=== PATIENT | male | born 1940 | race Caucasian/White ===

== ENCOUNTER → 2017-05-14 | Outpatient (CLI) | payer MEDICARE ==
[2017-05-14 14:40] LABS: HCT 47.9 % (39.0-53.0); HGB 15.4 gm/dL (13.0-17.5); MCH 31.7 pg (25.0-35.0); MCHC 32.2 g/dL (31.0-37.0); MCV 98.4 fL (80.0-100.0); Mean Platelet Volume 7.2; Platelet Count 274 k/uL (150-450); RBC 4.87 m/uL (4.30-5.90); RDW 14.4 % (11.5-15.5); WBC 6.2 k/uL (3.8-10.6)
[2017-05-14 14:46] LABS: Prothrombin Time 10.1 sec (9.0-12.0)
[2017-05-14 14:48] LABS: Anion Gap 10 mmol/L; Blood Urea Nitrogen 26 mg/dL (9-20); Calcium 9.1 mg/dL (8.4-10.2); Carbon Dioxide 28 mmol/L (22-30); Chloride 104 mmol/L (98-107); Glucose 90 mg/dL (74-99); Potassium 4.4 mmol/L (3.5-5.1); Sodium 142 mmol/L (137-145)
== END | disposition home or self-care (01) ==
LOC: LABWHC1 14:02
PROVIDERS: ATTEND Internal Medicine
DX: Z01.812 Encounter for preprocedural laboratory examination (principal); I25.10 Atherosclerotic heart disease of native coronary artery without angina pectoris
CPT/HCPCS: 36415; 80048; 85027; 85610

== ENCOUNTER 2017-06-23 09:11 | Day surgery (SDC) | payer MEDICARE ==
[2017-06-19 08:43] VITALS: BMI 23.7
[~2017-06-23 09:11] MED LIST: LACTATED RINGERS 1,000 ML IV SCH
[2017-06-23 10:07] VITALS: TEMP 97.9
[2017-06-23] MEDS ORDERED: PROPOFOL 10 MG/ML 20 ML VIAL IV ONE (10:31)
[2017-06-23 11:12] VITALS: BP 90/62; PULSE 73; RESP 16
--- NOTE | 2017-06-23 11:15 | P.PCN ---
Date of Procedure: 06/23/17 Procedure(s) Performed: Procedure: Colonoscopy and polypectomy. Preoperative diagnosis: Screening for neoplasia, patient has history of polyps and family history of colon cancer. Postoperative diagnosis: 1. Multiple small polyps snared but no large polyps or cancer. 2. Sigmoid diverticulosis with no evidence of acute diverticulitis or strictures. Preparation: HalfLytely prep. Sedation: Was provided by anesthesia. Brief clinical history: The patient is a 76-year-old male who is scheduled for this evaluation for screening for neoplasia because of history of polyps and family history of colon cancer in his mother. His last exam was in April 2014. He has no abdominal complaints, bleeding or anemia. Procedure: With the patient on his left lateral decubitus position and after informed consent and adequate sedation, the perianal area was inspected and it did not show any fissures or fistulas. There were no masses felt on digital rectal examination. The Olympus CFQ 160L video colonoscope was then inserted in the rectum in the usual fashion and advanced to the cecum. There were a few diverticular orifices noted scattered in the sigmoid with no evidence of acute diverticulitis or strictures. The mucosa appeared healthy. 3 small polyps were seen, one in the cecum one in the proximal right colon and one around the hepatic flexure which were snared and retrieved by suction but there were no large polyps or cancer. I retroflexed the endoscope in the rectum before the endoscope was withdrawn. The patient tolerated the procedure well. Plan: The patient was reassured. Discussed dietary measures. I recommended repeat exam in 3-5 years. He will follow up with you as planned.
== END 2017-06-23 11:55 | disposition home or self-care (01) ==
LOC: ORWHC2ENDO 09:11
DX: Z12.11 Encounter for screening for malignant neoplasm of colon (principal); D12.0 Benign neoplasm of cecum; D12.3 Benign neoplasm of transverse colon; D12.2 Benign neoplasm of ascending colon; K57.30 Diverticulosis of large intestine without perforation or abscess without bleeding; Z86.010 Personal history of colon polyps; Z80.0 Family history of malignant neoplasm of digestive organs; I71.2 Thoracic aortic aneurysm, without rupture; H40.9 Unspecified glaucoma; Z85.46 Personal history of malignant neoplasm of prostate; Z88.1 Allergy status to other antibiotic agents; Z88.0 Allergy status to penicillin; Z88.8 Allergy status to other drugs, medicaments and biological substances
CPT/HCPCS: 88305; 45385; J2704

== ENCOUNTER → 2017-06-24 | Outpatient (CLI) | payer MEDICARE ==
--- NOTE | 2017-06-25 10:09 | CT ---
EXAMINATION TYPE: CT angio head DATE OF EXAM: 06/24/2017 COMPARISON: NONE HISTORY: Thoracic aortic aneurysm. CT DLP: 1296 mGycm Automated exposure control for dose reduction was used. TECHNIQUE: CT sections are obtained through the brain at 3 mm thick sections. Study is performed post contrast. Three-D reconstructed images performed separately on the alternate computer by the technol ogist are filmed and presented. FINDINGS: [place]: The distal internal carotid arteries bifurcate normally into A1 and M1 segments. Th e anterior communicating artery appears patent. A2 segments are normal. Middle cerebral artery branch es are unremarkable. Right posterior communicating artery is patent. Left posterior communicating art nisa not well visualized. Posterior cerebral vasculature is normal. Basilar tip is unremarkable. Verte brobasilar system appears normal. Vertebral arteries are codominant. IMPRESSION: NORMAL [place] CTA
== END | disposition home or self-care (01) ==
LOC: RADCTMAIN 17:03
PROVIDERS: ATTEND Surgery
DX: I71.2 Thoracic aortic aneurysm, without rupture (principal)
CPT/HCPCS: 70496; Q9967

== ENCOUNTER → 2019-02-24 | Outpatient (CLI) | payer MEDICARE ==
--- NOTE | 2019-02-24 15:10 | CONS ---
CONSULTATION DATE OF SERVICE: 02/24/2019 A 78-year-old gentleman who has been evaluated in the [facility] for possible obstructive sleep apnea-hypopnea syndrome. HISTORY OF PRESENT ILLNESS/SLEEP-WAKE EVALUATION: Patient usual sleep schedule from 11 to 11:30 p.m. until 7:30 a.m. No problems with falling asleep, although he has TV set in bedroom, usually sleeps on the side position. According to his , he snores. He wakes up from sleep up to 4 times and up to 3 episodes of nocturia. During the day, he occasionally may take naps, feel refreshed after naps. No vivid dreams during naps. No history of hypnagogic hallucinations, sleep paralysis or cataplexy. [place] Sleepiness Scale is 5. PAST MEDICAL HISTORY: Positive for aortic aneurysm. PAST SURGICAL HISTORY: Status post surgery for aortic aneurysm in 2018. MEDICATIONS: Aspirin. FAMILY HISTORY: Aortic aneurysm in several members of his family and treated surgically, headaches, cancer, ulcers, restless legs. REVIEW OF SYSTEMS: Multiple awakenings from sleep. Sometimes tiredness and sleepiness during the day, snoring. SOCIAL HISTORY: Negative for smoking. Alcohol consumption daily and 1-1/2 drinks of martini. PHYSICAL EXAM: gentleman without distress, BP 114/64, HR 78, RR 16, height 5 foot 7-1/2 inches, weight 179 pounds. Body mass index 27.6, temperature 98.0, oxygen saturation at room air 95%. OROPHARYNX: Extremely low position of soft palate. Mallampati 4. NECK: 14-3/4 inches in circumference. CHEST: Scar in the middle of the chest after surgery noted. LUNGS: Clear to percussion and to auscultation. Good air exchange. No wheezing or rhonchi. HEART: S1, S2 regular. No murmurs, gallops, or rubs. ABDOMEN: Soft and nontender. Bowel sounds are present. No organomegaly appreciated. EXTREMITIES: No clubbing or cyanosis. NECK PINNER: Awake, alert, and oriented X3. Cranial nerves 2 to 7 intact. There is no fasciculation or atrophy. noted. No focal deficits observed. IMPRESSION: 1. Snoring, multiple awakenings from sleep up to 4 times with 3 episodes of nocturia, extremely low position of soft palate, Mallampati 4, episodes of sleepiness during the day with naps. Obstructive sleep apnea-hypopnea syndrome. 2. History of aortic aneurysm in ascending part and root of aorta. 3. Status post surgical treatment of aortic aneurysm. PLAN: 1. Polysomnography for evaluation of patient's breathing during sleep. 2. CPAP/BiPAP titration if sleep study confirms obstructive sleep apnea-hypopnea syndrome. 3. Preferable position during sleep on the side. 4. No driving if patient feels any sleepiness. 5. I will see patient for follow up visit to explain results of testing and following plan. 6. Patient was recommended to decrease and possibly stop using alcohol in the evening because it may increase snoring and could be the reason for developing of sleep apnea for some patients. Thank you very much for referring this patient for consultation. Sincerely, Emanuel Weems MD, PhD, FAASM Diplomat of [place] [employer] [place] [employer] Home Health Nurse Licensed Practical of [facility] [place] MMODL / IJN: [id number] /
== END | disposition home or self-care (01) ==
LOC: SLEEP 13:11
PROVIDERS: ATTEND Internal Medicine
DX: G47.33 Obstructive sleep apnea (adult) (pediatric) (principal); Z98.890 Other specified postprocedural states; Z79.82 Long term (current) use of aspirin; Z86.79 Personal history of other diseases of the circulatory system
CPT/HCPCS: 99211

== ENCOUNTER → 2019-05-13 | Outpatient (CLI) | payer MEDICARE ==
--- NOTE | 2019-05-13 20:23 | MR ---
EXAMINATION TYPE: MR brain wo con DATE OF EXAM: 05/13/2019 COMPARISON: NONE HISTORY: Lt eye vision loss, family hx of aortic aneurysm TECHNIQUE: T1-weighted sagittal, T2, FLAIR, and diffusion axial, and T2 coronal coronal views of the brain are submitted. FINDINGS: There is no evidence of acute ischemia. Changes of chronic sinusitis noted. Mild generalized degenera tive change. There is faint periventricular areas of abnormal signal are scattered focal areas of abn ormal signal external. Most typical remote microvascular ischemic change. There is no mass effect. Craniocervical junction maintained. Sella turcica has a normal appearance. No cerebellopontine angle mass. IMPRESSION: 1. No acute intracranial process. Degenerative change and minimal nonspecific white matter changes mo st typical of remote microvascular ischemia.
--- NOTE | 2019-05-13 20:24 | MR ---
EXAMINATION TYPE: MR angio head wo con DATE OF EXAM: 05/13/2019 COMPARISON: CTA 06/24/2017 HISTORY: CEREBRAL ANEURYSM RISK FAMILY HX TECHNIQUE: Utilizing 3-D [id number] intracranial MRA of the [place] was performed. FINDINGS: The vertebrobasilar and carotid systems are patent. There is 2 mm prominence of the anterior communi cating artery. Posterior communicating artery has a normal appearance right vertebral artery is domin ant. Anterior cerebral, posterior cerebral and middle cerebral arteries are patent. Mild ectasia of t he ophthalmic artery on the left. IMPRESSION: 1. 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 2. Mild asymmetric ectasia of the left ophthalmic artery with no discrete aneurysm.
== END | disposition home or self-care (01) ==
LOC: RADMRIMAIN 19:07
PROVIDERS: ATTEND Internal Medicine
DX: I77.89 Other specified disorders of arteries and arterioles (principal); G31.9 Degenerative disease of nervous system, unspecified; I67.82 Cerebral ischemia; R90.89 Other abnormal findings on diagnostic imaging of central nervous system; Z88.0 Allergy status to penicillin; Z88.1 Allergy status to other antibiotic agents; Z88.6 Allergy status to analgesic agent; Z88.8 Allergy status to other drugs, medicaments and biological substances; Z91.041 Radiographic dye allergy status
CPT/HCPCS: 70544; 70551

== ENCOUNTER → 2019-06-29 | Outpatient (CLI) | payer MEDICARE ==
--- NOTE | 2019-06-29 13:54 | US ---
EXAMINATION TYPE: US kidneys/renal and bladder DATE OF EXAM: 06/29/2019 COMPARISON: NONE CLINICAL HISTORY: R310 HEMATURIA. Pt states gross hematuria x 1 week EXAM MEASUREMENTS: Right Kidney: 11.0 x 5.4 x 5.4 cm Left Kidney: 10.8 x 6.2 x 4.8 cm Right Kidney: Cyst lower pole= 1.6 x 1.2 x 1.4 cm/ Mild hydro with dilated ureter Left Kidney: No evidence of hydro, possible calculi scattered throughout, largest 6mm in size Bladder: dilated right ureter visualized, otherwise appeared wnl Bilateral Jets seen: No Mild right-sided hydronephrosis are noted. No left-sided hydronephrosis. Calculi seen in the left kid victorino measuring up to 6 mm. Simple appearing cyst lower pole right kidney. No solid masses are identifi ed. The urinary bladder is anechoic. IMPRESSION: 1. Mild right-sided hydronephrosis. 2. Nonobstructing left-sided nephrolithiasis.
== END | disposition home or self-care (01) ==
LOC: RADUSWWP 12:36
PROVIDERS: ATTEND Urology
DX: N13.2 Hydronephrosis with renal and ureteral calculous obstruction (principal); Z88.1 Allergy status to other antibiotic agents; Z88.8 Allergy status to other drugs, medicaments and biological substances
CPT/HCPCS: 76770

== ENCOUNTER 2019-12-19 19:11 | Emergency (ER) | payer MEDICARE ==
[2019-12-19 19:17] VITALS: TEMP 98.3
[2019-12-19] MEDS ORDERED: HYDROmorphone 0.5 MG/0.5 ML SYRINGE IVP STA ×2 (19:34→21:37)
[2019-12-19] MEDS ORDERED: SODIUM CHLORIDE 0.9% 1,000 ML IV STA (19:34)
[2019-12-19] MEDS ORDERED: ONDANSETRON 4 MG/2 ML VIAL IVP STA (19:34)
[2019-12-19 19:55] VITALS: RESP 16
--- NOTE | 2019-12-19 19:55 | ED ---
Abdominal Pain HPI - General Chief Complaint: Abdominal Pain Stated Complaint: abd pain Time Seen by Provider: 12/19/19 19:22 Source: patient Mode of arrival: ambulatory Limitations: no limitations - History of Present Illness Initial Comments: 79-year-old male patient presents to the emergency department today for evaluation of right flank pain. States the pain has been present since around 3:00 this afternoon. States the pain is sharp and stabbing to the right flank region. Patient states he has been nauseous and did have episode of vomiting. Patient states that he has issues with urination due to recent diagnosis of bladder cancer for which he is scheduled to undergo surgery on Thursday. He denies any fever or chills. Denies any constipation or diarrhea. Denies history of abdominal surgery. Patient denies any recent rash, cough, shortness of breath, chest pain, numbness, tingling, dizziness, weakness, headache, visual changes, or any other complaints. - Related Data Previous Rx's Medication Instructions Recorded Sulfamethoxazole/Trimethoprim 1 each PO BID #20 tablet 12/19/19 [Bactrim DS 800-160 mg] Allergies Allergy/AdvReac Type Severity Reaction Status Date / Time Beta-Blockers Allergy Severe Rash/Hives Verified 12/19/19 20:56 (Beta-Adrenergic Bloc clindamycin Allergy Severe Rash/Hives Verified 12/19/19 20:56 moxifloxacin [From Avelox] Allergy Severe Rash/Hives Verified 12/19/19 20:56 Penicillins Allergy Severe Throat Verified 12/19/19 20:56 closes Review of Systems ROS Statement: Those systems with pertinent positive or pertinent negative responses have been documented in the HPI. ROS Other: All systems not noted in ROS Statement are negative. Past Medical History Past Medical History: Cancer, Eye Disorder Additional Past Medical History / Comment(s): PROSTATE CA , GLAUCOMA History of Any Multi-Drug Resistant Organisms: None Reported Past Surgical History: Hernia Repair, Prostate Surgery Additional Past Surgical History / Comment(s): ROCCO CATARACTS. COLONOSCOPY Past Anesthesia/Blood Transfusion Reactions: No Reported Reaction Past Psychological History: No Psychological Hx Reported Past Alcohol Use History: Daily Past Drug Use History: None Reported - Past Family History Mother Family Medical History: Cancer Father Family Medical History: Cancer General Exam Limitations: no limitations General appearance: alert, in no apparent distress, other (This is a well- developed, well-nourished elderly male patient in no acute distress. Vital sig ns upon presentation are temperature 98.3F, pulse 69, respirations 18, blood pressure 146/86, pulse ox 99% on room air.) Eye exam: Present: normal appearance, PERRL, EOMI. Absent: scleral icterus, conjunctival injection, periorbital swelling ENT exam: Present: normal exam, normal oropharynx, mucous membranes moist Respiratory exam: Present: normal lung sounds bilaterally. Absent: respiratory distress, wheezes, rales, rhonchi, stridor Cardiovascular Exam: Present: regular rate, normal rhythm, normal heart sounds. Absent: systolic murmur, diastolic murmur, rubs, gallop, clicks GI/Abdominal exam: Present: soft, normal bowel sounds. Absent: distended, tenderness, guarding, rebound, rigid Back exam: Present: normal inspection, CVA tenderness (R). Absent: CVA tenderness (L) Neurological exam: Present: alert, oriented X3, CN II-XII intact Psychiatric exam: Present: normal affect, normal mood Skin exam: Present: warm, dry, intact, normal color. Absent: rash Course Vital Signs 12/19/19 12/19/19 12/19/19 19:15 19:54 21:47 Temperature 98.3 F Pulse Rate 69 77 67 Respiratory 18 16 16 Rate Blood Pressure 146/86 134/81 128/78 O2 Sat by Pulse 99 96 97 Oximetry Medical Decision Making - Medical Decision Making 79-year-old male patient presents to the emergency department today for evaluation of right flank pain. Physical examination did reveal right CVA tenderness, no abdominal tenderness. Labs reviewed and did reveal elevated BUN at 26. Urinalysis did show greater than 182 red blood cells, greater than 182 white blood cells, large leukocyte esterase. CT abdomen and pelvis was obtained and showed no evidence for kidney stone however did reveal right-sided hydronephrosis and hydroureter consistent with obstruction. We did discuss the case with the patient's urologist Dr. Pedro who recommends starting antibiotics and having him follow-up in the office this week. Patient will be given a dose of pain medication for home. He is instructed to complete and rapid prescription and full. Dr. Shaw was in and evaluated the patient and relayed instructions. Return parameters were discussed in detail. He verbalizes understanding and agrees with this plan - Lab Data Result diagrams: 12/19/19 19:46 12/19/19 19:46 Lab Results 12/19/19 12/19/19 12/19/19 Range/Units 19:46 19:46 19:46 WBC 11.6 H (3.8-10.6) k/uL RBC 4.84 (4.30-5.90) m/uL Hgb 15.0 (13.0-17.5) gm/dL Hct 46.9 (39.0-53.0) % MCV 96.9 (80.0-100.0) fL MCH 31.0 (25.0-35.0) pg MCHC 32.0 (31.0-37.0) g/dL RDW 13.1 (11.5-15.5) % Plt Count 272 (150-450) k/uL Neutrophils % 82 % Lymphocytes % 9 % Monocytes % 6 % Eosinophils % 2 % Basophils % 1 % Neutrophils # 9.5 H (1.3-7.7) k/uL Lymphocytes # 1.0 (1.0-4.8) k/uL Monocytes # 0.7 (0-1.0) k/uL Eosinophils # 0.2 (0-0.7) k/uL Basophils # 0.1 (0-0.2) k/uL Sodium 137 (137-145) mmol/L Potassium 4.1 (3.5-5.1) mmol/L Chloride 103 (98-107) mmol/L Carbon Dioxide 26 (22-30) mmol/L Anion Gap 8 mmol/L BUN 26 H (9-20) mg/dL Creatinine 1.16 (0.66-1.25) mg/dL Est GFR (CKD-EPI)AfAm 70 (>60 ml/min/1.73 sqM) Est GFR (CKD-EPI)NonAf 60 (>60 ml/min/1.73 sqM) Glucose 104 H (74-99) mg/dL Calcium 9.2 (8.4-10.2) mg/dL Total Bilirubin 0.6 (0.2-1.3) mg/dL AST 23 (17-59) U/L ALT 13 (4-49) U/L Alkaline Phosphatase 59 (38-126) U/L Total Protein 7.1 (6.3-8.2) g/dL Albumin 4.3 (3.5-5.0) g/dL Amylase 47 (30-110) U/L Lipase 71 (23-300) U/L Urine Color [place] Urine Appearance Cloudy (Clear) Urine pH 6.0 (5.0-8.0) Ur Specific [place] 1.020 (1.001-1.035) Urine Protein 4+ H (Negative) Urine Glucose (UA) Negative (Negative) Urine Ketones 1+ (Negative) Urine Blood Large (Negative) Urine Nitrite Negative (Negative) Urine Bilirubin Negative (Negative) Urine Urobilinogen 0.2 (<2.0) mg/dL Ur Leukocyte Esterase Large (Negative) Urine RBC >182 H (0-5) /hpf Urine WBC >182 H (0-5) /hpf Urine WBC Clumps Few H (None) /hpf Urine Bacteria Many H (None) /hpf Hyaline Casts 13 H (0-2) /lpf Urine Mucus Few H (None) /hpf - Radiology Data Radiology results: report reviewed, image reviewed CT abdomen and pelvis without contrast was obtained. Report was reviewed in its entirety. Impression by Dr. Hunter shows right-sided hydronephrosis and hydroureter similar to the ultrasound exam of 06/29/2019. The ultrasound exam was reviewed and no obstructing mass is demonstrated. The hydronephrosis and hydroureter could relate to reflux disease. Obstruction of the right distal ureter due to tumor is not excluded. Disposition Clinical Impression: Hydronephrosis, right, Urinary tract infection Disposition: HOME SELF-CARE Condition: Good Instructions (If sedation given, give patient instructions): Urinary Tract Infection in Men (ED), Flank Pain (ED), Hydronephrosis (ED) Additional Instructions: Take medications as directed. Follow-up with Dr. Pedro for recheck as soon as possible. Return to the emergency department immediately for any new, worsening, or concerning symptoms. Prescriptions: Sulfamethoxazole/Trimethoprim [Bactrim DS 800-160 mg] 1 each PO BID #20 tablet Is patient prescribed a controlled substance at d/c from ED?: No Referrals: Gilberto Cristobal MD [Primary Care Provider] - 1-2 days Time of Disposition: 21:39
[2019-12-19 19:59] LABS: Basophils # (A) 0.1 k/uL (0-0.2); Basophils % (A) 1 %; Eosinophils # (A) 0.2 k/uL (0-0.7); Eosinophils % (A) 2 %; HCT 46.9 % (39.0-53.0); Lymphocytes % (A) 9 %; MCV 96.9 fL (80.0-100.0); Mean Platelet Volume 7.1; Monocytes # (A) 0.7 k/uL (0-1.0); Monocytes % (A) 6 %; Neutrophils # (A) 9.5 k/uL (1.3-7.7); Neutrophils % (A) 82 %; Platelet Count 272 k/uL (150-450); RBC 4.84 m/uL (4.30-5.90); RDW 13.1 % (11.5-15.5); WBC 11.6 k/uL (3.8-10.6)
[2019-12-19 20:08] LABS: Albumin 4.3 g/dL (3.5-5.0); Calcium 9.2 mg/dL (8.4-10.2); Potassium 4.1 mmol/L (3.5-5.1); Total Bilirubin 0.6 mg/dL (0.2-1.3); Total Protein 7.1 g/dL (6.3-8.2)
[2019-12-19 20:12] LABS: Appearance,Urine Cloudy (Clear); Color,Urine Amber
[2019-12-19 20:13] LABS: Glucose,Urine (UA) Negative (Negative); Ketones,Urine 1+ (Negative); Protein,Urine 4+ (Negative)
[2019-12-19 20:14] LABS: Bilirubin,Urine Negative (Negative); Blood,Urine Large (Negative); Leukocyte Esterase,Urine Large (Negative); Nitrite,Urine Negative (Negative); Urobilinogen,Urine 0.2 mg/dL (<2.0)
[2019-12-19 20:15] LABS: Bacteria,Urine Many /hpf; RBC,Urine >182 /hpf (0-5); WBC,Urine >182 /hpf (0-5)
[2019-12-19 20:16] LABS: Hyaline Casts,Urine 13 /lpf (0-2); Mucus,Urine Few /hpf
--- NOTE | 2019-12-19 20:47 | CT ---
EXAMINATION TYPE: CT abdomen pelvis wo con DATE OF EXAM: 12/19/2019 COMPARISON: HISTORY: Right flank pain. History of bladder cancer. CT DLP: 639.5 mGycm Automated exposure control for dose reduction was used. Lung bases are clear. There is no pleural effusion. There is mild subsegmental atelectasis at the marko g bases. There is no pericardial effusion. There is small hiatal hernia. There is 2 cm cyst in the left lobe of the liver. The bile ducts are no t dilated. Gallbladder appears normal. There is no evidence of splenic mass. There is no pancreatic m ass. There is no adrenal mass. There is right-sided hydronephrosis and hydroureter. Bladder is empty. I see no ureteral calculus. Th ere is no evidence of a pelvic mass. There is no inguinal hernia. There is no free fluid in the pelvi s. There is no mesenteric edema. There is no ascites or free air. There is 1.5 cm cortical cyst lower po le right kidney. Left kidney shows no hydronephrosis. There is no evidence of a renal calculus. There is no evidence of bowel obstruction. Appendix is lateral and appears normal. Small bowel has no rmal pattern. Lumbar vertebra have normal alignment. There is mild narrowing of disc spaces. There is spurring of the endplates. Facet joints are intact. Bony pelvis is intact. IMPRESSION: There is right-sided hydronephrosis and hydroureter similar to the ultrasound exam of 06/29/2019. The ultrasound exam is reviewed and no obstructing mass was demonstrated. The hydronephrosis and hydroure ter could relate to reflux disease. Obstruction of the distal right ureter due to tumor is not exclud ed.
[2019-12-19] MEDS ORDERED: SULFAMETHOX-TMP 800-160MG 1 EACH TAB PO STA (21:37)
[2019-12-19] MEDS ORDERED: ACET/COD 300 MG/30 MG STARTER PACK 6 TAB BTL PO STA (21:37)
[2019-12-19] MEDS ORDERED: SULFAMETH-TMP DS STARTER PACK 2 TAB BTL PO STA (21:38)
[2019-12-19 21:53] VITALS: BP 128/78; PULSE 67
== END 2019-12-19 22:04 | disposition home or self-care (01) ==
LOC: EC 19:11
DX: N39.0 Urinary tract infection, site not specified (principal); N13.30 Unspecified hydronephrosis; Z85.46 Personal history of malignant neoplasm of prostate; Z88.0 Allergy status to penicillin; Z88.1 Allergy status to other antibiotic agents; Z88.8 Allergy status to other drugs, medicaments and biological substances
CPT/HCPCS: 36415; 80053; 82150; 83690; 85025; 81001; 87086; 74176; 99284; 96374; 96375; 96376; 96361; J2405; J1170

== ENCOUNTER → 2020-01-05 | Outpatient (CLI) | payer MEDICARE ==
--- NOTE | 2020-01-05 14:16 | NM ---
EXAMINATION TYPE: NM bone scan whole body DATE OF EXAM: 01/05/2020 COMPARISON: NONE HISTORY: Bladder carcinoma Delayed whole-body scanning was performed following the injection of 25.7 mCi Tc 99m MDP. Images acq uired 3 hours post injection. FINDINGS: There is no evidence for intense uptake at this time to suggest metastatic disease. There is degenera tive uptake about the shoulders, lower cervical spine, lower thoracic spine and lumbar spine. Degener ative uptake is also seen about the hands and wrists, knees, ankles and feet. Right mandibular period ontal disease noted. IMPRESSION: No scintigraphic evidence to suggest metastatic disease at this time.
== END | disposition home or self-care (01) ==
LOC: RADNMMAIN 10:23
PROVIDERS: ATTEND Urology
DX: C67.9 Malignant neoplasm of bladder, unspecified (principal); Z88.0 Allergy status to penicillin; Z88.1 Allergy status to other antibiotic agents; Z88.8 Allergy status to other drugs, medicaments and biological substances
CPT/HCPCS: 78306; A9503

== ENCOUNTER → 2020-01-27 | Outpatient (CLI) | payer MEDICARE | END | disposition home or self-care (01) | LOC: LABWHC1 10:56 | PROVIDERS: ATTEND Urology | DX: Z20.828 Contact with and (suspected) exposure to other viral communicable diseases (principal); Z11.59 Encounter for screening for other viral diseases ==